=== PATIENT | female | born 1965 | race Caucasian/White ===

== ENCOUNTER → 2023-08-17 07:36 | Outpatient (REF) | payer BC, SELFPAY ==
[2023-08-17 09:40] LABS: % Basophils 0.5 % (0-2); % Eosinophils 2.9 % (0-6); % Immature Granulocytes 0.4 % (0-0.5); % Lymphocytes 26.2 % (20.5-51.1); % Monocytes 8.2 % (1.7-9.3); % Neutrophils 61.8 % (42.2-75.2); Absolute Eosinophils 0.2 10^3/uL (0-0.7); Absolute Lymphocytes 1.5 10^3/uL (1.2-3.4); Absolute Monocytes 0.5 10^3/uL (0.1-0.6); Absolute Neutrophils 3.5 10^3/uL (1.4-6.5); Hematocrit 42.8 % (37.0-47.0); Hemoglobin 14.5 g/dL (12.0-16.0); Mean Corp Hgb Conc. 33.9 g/dL (33.0-37.0); Mean Corpuscular Hgb 29.4 pg (27.0-31.0); Mean Corpuscular Volume 86.6 fL (81.0-99.0); Mean Platelet Volume 10.5 fL (7.4-10.4); Nucleated Red Blood Cells % 0 %; Platelet Count 221 10^3/uL (130-400); Red Blood Cell Count 4.94 10^6/uL (4.20-5.40); White Blood Cell Count 5.6 10^3/uL (4.8-10.8)
[2023-08-17 09:55] LABS: ALT (SGPT) 34 U/L (0-35); AST (SGOT) 30 U/L (14-36); Albumin 4.4 g/dl (3.5-5.0); Alkaline Phosphatase 64 U/L (38-126); Blood Urea Nitrogen 25 mg/dl (7-17); Calcium 9.7 mg/dl (8.4-10.2); Carbon Dioxide 29 mmol/L (22-30); Chloride 102 mmol/L (98-107); Glucose 107 mg/dl (70-99); Magnesium 2.3 mg/dl (1.6-2.3); Potassium 4.5 mmol/L (3.5-5.1); Sodium 137 mmol/L (135-145); Total Bilirubin 0.9 mg/dl (0.2-1.3); Total Protein 7.3 g/dl (6.3-8.2); eGFR > 60.00
[2023-08-17 10:22] LABS: Free T4 1.02 ng/dl (0.78-2.19)
[2023-08-17 10:27] LABS: TSH 2.81 uIU/ml (0.47-4.68)
[2023-08-17 11:52] LABS: Glycohemoglobin (HgbA1c) 6.4 % (4.0-5.6)
[2023-08-22 00:17] LABS: HDL Cholesterol 57 mg/dL (40-59); HDL Particle Number, NMR 31.9 umol/L (>=33.0); HDL Particle Size, NMR 8.9 nm (>=8.9); LDL Cholesterol, Calculated 58 mg/dL (<=129); LDL Particle Number, NMR 668 nmol/L (<=1135); LDL Particle Size, NMR 20.9 nm (>=20.7); Large HDL Particle Number, NMR 4.8 umol/L (>=4.2); Large VLDL Particle Number,NMR 1.9 nmol/L (<=2.7); Small LDL Particle Number, NMR 267 nmol/L (<=634); Total Cholesterol 125 mg/dL (<=199); Triglycerides 49 mg/dL (30-149); VLDL Particle Size, NMR 48.9 nm (<=46.7)
== END ==
LOC: HWLAB 07:36
PROVIDERS: ATTENDING PHYSICIAN Internal Medicine; FAMILY PHYSICIAN Physician Assistant
DX: E78.6 Lipoprotein deficiency (principal); E88.810 Metabolic syndrome; R73.01 Impaired fasting glucose; R74.01 Elevation of levels of liver transaminase levels; G47.19 Other hypersomnia
CPT/HCPCS: 36415; 80053; 80061; 83036; 83704; 83735; 84439; 84443; 84550; 85025

== ENCOUNTER → 2024-03-12 07:37 | Outpatient (REF) | payer BC, SELFPAY ==
[2024-03-12 08:52] LABS: % Basophils 0.7 % (0-2); % Eosinophils 3.3 % (0-6); % Immature Granulocytes 0.2 % (0-0.5); % Lymphocytes 28.8 % (20.5-51.1); % Monocytes 8.1 % (1.7-9.3); % Neutrophils 58.9 % (42.2-75.2); Absolute Eosinophils 0.2 10^3/uL (0-0.7); Absolute Lymphocytes 1.6 10^3/uL (1.2-3.4); Absolute Monocytes 0.4 10^3/uL (0.1-0.6); Absolute Neutrophils 3.2 10^3/uL (1.4-6.5); Hematocrit 42.5 % (37.0-47.0); Hemoglobin 14.1 g/dL (12.0-16.0); Mean Corp Hgb Conc. 33.2 g/dL (33.0-37.0); Mean Corpuscular Hgb 28.9 pg (27.0-31.0); Mean Corpuscular Volume 87.1 fL (81.0-99.0); Mean Platelet Volume 10.9 fL (7.4-10.4); Nucleated Red Blood Cells % 0 %; Platelet Count 224 10^3/uL (130-400); Red Blood Cell Count 4.88 10^6/uL (4.20-5.40); White Blood Cell Count 5.4 10^3/uL (4.8-10.8)
[2024-03-12 09:35] LABS: ALT (SGPT) 31 U/L (0-35); AST (SGOT) 27 U/L (14-36); Albumin 4.5 g/dl (3.5-5.0); Alkaline Phosphatase 50 U/L (38-126); Blood Urea Nitrogen 17 mg/dl (7-17); Calcium 10.1 mg/dl (8.4-10.2); Carbon Dioxide 29 mmol/L (22-30); Chloride 104 mmol/L (98-107); Glucose 105 mg/dl (70-99); HDL Cholesterol 64 mg/dl; LDL Cholesterol, Calculated 48 mg/dl; Magnesium 2.1 mg/dl (1.6-2.3); Potassium 5.4 mmol/L (3.5-5.1); Sodium 144 mmol/L (135-145); Total Bilirubin 0.7 mg/dl (0.2-1.3); Total Cholesterol 122 mg/dl (50-199); Total Protein 6.9 g/dl (6.3-8.2); Triglyceride 51 mg/dl (10-149); Very Low Density Lipoprotein 10 mg/dl (0-30); eGFR > 60.00
[2024-03-12 09:44] LABS: Free T4 1.05 ng/dl (0.78-2.19)
[2024-03-12 09:58] LABS: TSH 3.79 uIU/ml (0.47-4.68)
[2024-03-12 09:59] LABS: Glycohemoglobin (HgbA1c) 5.7 % (4.0-5.6)
== END ==
LOC: HWWDC 07:37
PROVIDERS: ATTENDING PHYSICIAN Obstetrics & Gynecology; FAMILY PHYSICIAN Physician Assistant; REFERRING PHYSICIAN Physician Assistant
DX: Z12.31 Encounter for screening mammogram for malignant neoplasm of breast (principal); Z13.220 Encounter for screening for lipoid disorders; E78.6 Lipoprotein deficiency; R73.03 Prediabetes; E88.810 Metabolic syndrome; R74.01 Elevation of levels of liver transaminase levels; E66.01 Morbid (severe) obesity due to excess calories
CPT/HCPCS: 36415; 77063; 77067; 80053; 80061; 83036; 83735; 84439; 84443; 84550; 85025

== ENCOUNTER 2024-07-19 21:35 | Emergency (ER) | payer BC, SELFPAY ==
[2024-07-19 21:42] VITALS: BP 161/103
[2024-07-19 22:12] LABS: % Basophils 0.9 % (0-2); % Eosinophils 2.4 % (0-6); % Immature Granulocytes 0.4 % (0-0.5); % Lymphocytes 33.7 % (20.5-51.1); % Monocytes 8.1 % (1.7-9.3); % Neutrophils 54.5 % (42.2-75.2); Absolute Basophils 0.1 10^3/uL (0-0.2); Absolute Eosinophils 0.2 10^3/uL (0-0.7); Absolute Lymphocytes 2.3 10^3/uL (1.2-3.4); Absolute Monocytes 0.6 10^3/uL (0.1-0.6); Absolute Neutrophils 3.8 10^3/uL (1.4-6.5); Hematocrit 40.2 % (37.0-47.0); Hemoglobin 13.5 g/dL (12.0-16.0); Mean Corp Hgb Conc. 33.6 g/dL (33.0-37.0); Mean Corpuscular Hgb 28.8 pg (27.0-31.0); Mean Corpuscular Volume 85.7 fL (81.0-99.0); Mean Platelet Volume 10.6 fL (7.4-10.4); Nucleated Red Blood Cells % 0 %; Platelet Count 220 10^3/uL (130-400); Red Blood Cell Count 4.69 10^6/uL (4.20-5.40); Red Cell Dist. Width 13.1 % (11.5-14.5); White Blood Cell Count 6.9 10^3/uL (4.8-10.8)
[2024-07-19 22:17] VITALS: BP 134/77
[2024-07-19 22:19] LABS: ALT (SGPT) 28 U/L (0-35); AST (SGOT) 24 U/L (14-36); Albumin 4.3 g/dl (3.5-5.0); Alkaline Phosphatase 65 U/L (38-126); Blood Urea Nitrogen 24 mg/dl (7-17); Calcium 9.9 mg/dl (8.4-10.2); Carbon Dioxide 32 mmol/L (22-30); Chloride 100 mmol/L (98-107); Glucose 132 mg/dl (70-99); Potassium 4.4 mmol/L (3.5-5.1); Sodium 136 mmol/L (135-145); Total Bilirubin 0.6 mg/dl (0.2-1.3); Total Protein 7.1 g/dl (6.3-8.2); eGFR 58.61
[2024-07-19 22:32] LABS: NT-proBNP 37.1 pg/ml; Troponin I < 0.012 ng/ml
--- NOTE | 2024-07-19 23:22 | ED.GENMED ---
History of Present Illness
General
Chief Complaint: Chest Pain
Time Seen by Provider: 07/19/24 22:18
History of Present Illness
History of Present Illness:
59-year-old female presents to the emergency department for evaluation of intermittent chest pain over the past 4 to 5 days. Pain seems to be random without obvious provoking or palliating factor. Over the past 2 days she has had occasional
radiation of pain toward the jaw. She did see her primary care physician for the symptoms earlier in the week and was sent for an outpatient Holter monitor which is scheduled next week, however due to worsening symptoms this evening she came to the
emergency department. She does have mild chest pressure currently. No associated fever, chills, sweats, coughing, nausea, vomiting, or diarrhea. Denies any clear exertional or positional component to symptoms. No pleuritic pain. No recent
international travel or prolonged immobilization, does not take any blood thinners or antiplatelets
Review of Systems
Review of Systems
Allergies reviewed?: Yes
All Other Systems: ROS reviewed and negative except as documented in HPI and ROS
Phy Exam
Physical Exam
Physical Exam:
GEN: Well appearing, NAD, WDWN
HEENT: Oral mucosa moist, no scleral icterus
Cardiac: Regular rate and rhythm, no murmurs
Lung: No respiratory distress, no tachypnea, lungs clear to auscultation bilaterally
MSK: No gross deformity or injuries
Skin: Good color, no pallor or jaundice, no rashes
Neuro: AO x3, moves all extremities freely
Psych: Calm, cooperative
Scores
Heart Score for Chest Pain Patients
STEMI patient?: No
History: Slightly or Non-Suspicious
ECG: Normal
Age: >45 - <65 years
Risk Factors: No Risk Factors
Troponin: </= Normal Limit
Heart Score for Chest Pain Patients: 1
Heart Score Risk: 2.5% MACE over next 6 weeks
Course
Orders/Labs/Results
Orders:
Orders
07/19/24 21:37
ECG [Electrocardiogram (*1)] Urgent
Reason for Study: Chest Pain
Other Reason for Exam: heaviness
Cardiology Consult: Unknown
07/19/24 21:38
EKG- Treatment ONCE
07/19/24 21:40
Cardiac Monitoring- Treatment ONCE
IV Insert/Care/Rem.- Treatment PRN
CR Chest - 2 Views Urgent
Comment:
Reason For Exam: respiratory distress
O2 Therapy [RESP] Urgent
Titrate/Wean O2 to maintain O2 sat greater than (%): 93
Special Instructions: TO MAINTAIN CONTINUOUS O2 SATS >/= 93%
Pulse Ox/cont/shift [RESP] Urgent
Quantity: 1
Special Instructions: continuous pulse ox
07/19/24 21:50
Complete Blood Count/With Diff Urgent
Comprehensive Metabolic Panel Urgent
NT-proBNP Urgent
Troponin I Urgent
Abnormal Lab Results
07/19/24
21:50
MPV 10.6 H fL
(7.4-10.4)
Carbon Dioxide 32 H mmol/L
(22-30)
BUN 24 H mg/dl
(7-17)
Creatinine 1.1 H mg/dL
(0.6-1.0)
Glucose 132 H mg/dl
(70-99)
07/19/24 21:50
07/19/24 21:50
Vital Signs
Initial and Last Documented VS:
Initial Vital Signs
Temp Pulse Resp BP Pulse Ox
98.3 F 85 20 161/103 99
07/19/24 21:42 07/19/24 21:42 07/19/24 21:42 07/19/24 21:42 07/19/24 21:42
Last Documented Vital Signs
Temp Pulse Resp BP Pulse Ox
98.3 F 84 17 134/77 98
07/19/24 21:42 07/19/24 22:17 07/19/24 22:17 07/19/24 22:17 07/19/24 22:17
MDM/Problems Addressed
MDM/Problems Addressed:
EKG is reassuring, no ischemic changes. Negative troponin is also reassuring particular given the patient has had intermittent symptoms for several days. She does not have a clear concerning story that would suggest acute coronary syndrome
nevertheless given her age we will recommend close outpatient cardiology follow-up for further ischemic workup. Has no risk factors for coronary disease or pulmonary embolism, do not suspect acute thoracic aortic aneurysm
*Critical Care Note
Total Time (30-74mins, 75-104mins- exclusive of procedures): Not Applicable
ED Attending Note
-
Portions of this chart may have been created with voice recognition software.� Occasional wrong word or��sound alike� substitutions may have occurred due to the inherent limitations of voice recognition software.
Discharge Plan
Departure
Patient Disposition: Home (Routine Discharge)
Date of Disposition: 07/19/24
Time of Disposition: 23:22
Patient with high blood pressure during this ER visit?: No
Discharge Problem:
Chest pain
Instructions: Chest Pain DCA Follow Up
Referrals:
Molly Menon PA-C [Family Provider] -
Interventions
Interventions:
*Risk Screen - Suicide Last Done: 07/19/24 22:28
*General Assessment Last Done: 07/19/24 21:42
*Neglect/Abuse Screening Last Done: 07/19/24 22:28
ED- Fall Risk Assessment Last Done: 07/19/24 22:39
*ED COVID-19 Vaccine History Last Done: 07/19/24 22:28
*Nursing Disposition Last Done: 07/19/24 23:25
ED- Cardiac Assessment Last Done: 07/19/24 23:10
Discharge Date and Time
Discharge Date/Time: 07/19/24 23:25
Print Language: KITTITIAN
== END 2024-07-19 23:25 | disposition home or self-care (01) ==
LOC: EMR 21:35
PROVIDERS: Emergency Medicine; EMERGENCY PHYSICIAN Emergency Medicine; FAMILY PHYSICIAN Physician Assistant
DX: R07.89 Other chest pain (principal)
CPT/HCPCS: 99285; 71046; 80053; 83880; 84484; 85025; 93005

== ENCOUNTER → 2024-08-23 12:48 | Outpatient (REF) | payer BC, SELFPAY | LOC: RCS 12:48 | PROVIDERS: ATTENDING PHYSICIAN Internal Medicine Interventional Cardiology; FAMILY PHYSICIAN Physician Assistant | DX: R07.9 Chest pain, unspecified (principal); E66.9 Obesity, unspecified; Z82.49 Family history of ischemic heart disease and other diseases of the circulatory system | CPT/HCPCS: 93306 ==

== ENCOUNTER → 2024-09-05 07:29 | Outpatient (REF) | payer BC, SELFPAY | LOC: RCS 07:29 | PROVIDERS: ATTENDING PHYSICIAN Internal Medicine Interventional Cardiology; FAMILY PHYSICIAN Physician Assistant | DX: R07.89 Other chest pain (principal); E66.9 Obesity, unspecified; I36.1 Nonrheumatic tricuspid (valve) insufficiency | CPT/HCPCS: 93017 ==

== ENCOUNTER → 2025-03-25 07:30 | Outpatient (REF) | payer BC, SELFPAY ==
[2025-03-25 10:18] LABS: Hematocrit 40.7 % (37.0-47.0); Hemoglobin 13.3 g/dL (12.0-16.0); Mean Corp Hgb Conc. 32.7 g/dL (33.0-37.0); Mean Corpuscular Volume 86.2 fL (81.0-99.0); Nucleated Red Blood Cells % 0 %; Platelet Count 214 10^3/uL (130-400); Red Cell Dist. Width 12.8 % (11.5-14.5)
[2025-03-25 10:43] LABS: ALT (SGPT) 30 U/L (0-35); AST (SGOT) 26 U/L (14-36); Alkaline Phosphatase 64 U/L (38-126); Blood Urea Nitrogen 13 mg/dl (7-17); Calcium 9.4 mg/dl (8.4-10.2); Carbon Dioxide 28 mmol/L (22-30); Chloride 106 mmol/L (98-107); Glucose 116 mg/dl (70-99); HDL Cholesterol 64 mg/dl; LDL Cholesterol, Calculated 55 mg/dl; Potassium 4.1 mmol/L (3.5-5.1); Sodium 141 mmol/L (135-145); Total Protein 7.0 g/dl (6.3-8.2); Very Low Density Lipoprotein 11 mg/dl (0-30); eGFR > 60.00
[2025-03-25 10:57] LABS: Glycohemoglobin (HgbA1c) 6.0 % (4.0-5.6)
[2025-03-25 11:02] LABS: TSH 4.07 uIU/ml (0.47-4.68)
[2025-03-25 11:03] LABS: Albumin 4.3 g/dl (3.5-5.0); Uric Acid 5.9 mg/dl (2.5-6.2)
== END ==
LOC: HWLAB 07:30
PROVIDERS: ATTENDING PHYSICIAN Internal Medicine; FAMILY PHYSICIAN Physician Assistant
DX: E66.9 Obesity, unspecified (principal); G47.33 Obstructive sleep apnea (adult) (pediatric); I36.1 Nonrheumatic tricuspid (valve) insufficiency; R74.01 Elevation of levels of liver transaminase levels; R73.01 Impaired fasting glucose; G47.19 Other hypersomnia; E88.810 Metabolic syndrome; E78.6 Lipoprotein deficiency; R63.2 Polyphagia; Z79.899 Other long term (current) drug therapy; R73.03 Prediabetes
CPT/HCPCS: 36415; 80053; 80061; 83036; 84439; 84443; 84550; 85025